=== PATIENT | female | born 1940 ===

== ENCOUNTER → 2018-02-16 | Day surgery (SDC) | payer MEDICARE ==
[2018-02-10 13:33] VITALS: BMI 48.4
[~2018-02-16] MED LIST: Adenosine 90 mg/30mL IV ONE; Bacitracin 500 Units/gm Oint Foilpak UD ONE; Bacitracin 500 Units/gm Oint Foilpak UD TOP ONE; Iohexol 350 MG/100 ML VIAL ONE; Iohexol 350mgl/ml 50 ML ONE; Lidocaine 2% Inj (20ml) ONE; Midazolam 2 MG/2 ML VIAL ONE; Nitroglycerin 50mg in D5W 50 MG/250 ML BOTTLE IV ONE; Verapamil 2 ML ONE
[2018-02-16 09:06] LABS: BASO # 0.02 K/mm3 (0.0-2.0); BASO % 0.4 % (0.0-3.0); EOS # 0.2 (0.0-0.7); EOS % 3.1 % (1.5-5.0); GRAN # 2.84 (1.4-6.5); GRAN % 55.7 % (50.0-68.0); HEMOGLOBIN 12.2 g/dL (12.0-16.0); LYMPH # 1.7 (1.2-3.4); LYMPH % 33.9 % (22.0-35.0); MEAN CORPUSCULAR HEMOGLOBIN 30.3 pg (25.0-35.0); MEAN PLATELET VOLUME 8.5 fl (7.0-11.0); MONO # 0.4 (0.1-0.6); MONO % 6.9 % (1.0-6.0); RBC 4.02 10^6/uL (3.5-6.1); WHITE BLOOD COUNT 5.1 10^3/ul (4.5-11.0)
[2018-02-16 09:09] LABS: BLOOD UREA NITROGEN 19 mg/dL (7-21); CALCIUM 9.2 mg/dL (8.4-10.5); GFR AFRICAN-AMERICAN > 60; GFR NON-AFRICAN AMERICAN > 60; HDL CHOLESTEROL 56 mg/dL (29-60)
[2018-02-16 09:19] LABS: LDL CHOLESTEROL 114 mg/dL (0-129)
[2018-02-16 09:20] LABS: INR 1.04 (0.93-1.08); PARTIAL THROMBOPLASTIN TIME 31.3 Seconds (25.1-36.5)
[2018-02-16 09:44] VITALS: RESP 18
--- NOTE | 2018-02-16 13:06 | CARD ---
APPROVED REPORT EKG Measurement Heart [id number] <Conclusion> Normal sinus rhythm Normal ECG
[2018-02-16 14:27] VITALS: TEMP 97.4
[2018-02-16 14:54] VITALS: O2SAT 99
[2018-02-16 15:21] VITALS: PULSE 62
--- NOTE | 2018-02-16 18:28 | CARDCATH ---
PROCEDURE DATE: 02/16/2018 INDICATIONS: Marah Hull is a 77-year-old female with past medical history significant for hypertension, diabetes, hyperlipidemia, referred for evaluation of abnormal stress test dyspnea on exertion and chest pain. PROCEDURES PERFORMED: Left heart catheterization with selective left and right coronary angiogram, left ventriculogram, fractional flow reserve interrogation of moderate left anterior descending, obtuse marginal right coronary artery lesion, physiologically nonsignificant fractional flow reserve of left anterior descending 0.81, fractional flow reserve of obtuse marginal 0.9, fractional flow reserve of right coronary artery 0.84, 6-Palestinian left radial arterial access, wrist band for hemostasis. TECHNIQUES OF PROCEDURE: After obtaining informed consent, the patient was brought to the cardiac catheterization suite in post-absorptive, non-sedated state. The patient was prepped and draped in the usual sterile fashion, 2% lidocaine was used for infiltration of anesthesia. Using modified Seldinger technique, a 6-Palestinian sheath was introduced into the left radial artery. Subsequently, over an exchanged length wire, a JL-4 catheter was advanced. The radial artery was noted to be tortuous for which a Glidewire was then negotiated through the tortuosity up to the level of the left brachial. Subsequently, catheter was advanced. Guide and the wire was pulled back to straighten out the tortuosity and subsequently JR-4 and JL-4 diagnostic catheter were used to engage the right and left coronary systems and angiograms were obtained in different orthogonal views. CORONARY ANATOMY: Right coronary artery is a large-sized vessel, bifurcates into PDA and PLV branches. Mid RCA has 65% moderate stenosis with haziness noted. FFR of mid RCA was physiologically nonsignificant at 0.84. Left main is a large-sized vessel, bifurcates into LAD and left circumflex coronary artery. LAD mid segment has a 60% stenosis at the bifurcation of the diagonal with ostial 50% stenosis. LAD is wraparound vessel. FFR of the LAD was done which was physiologically nonsignificant at 0.81. Left circumflex artery runs in the AV groove, gives off a medium-sized obtuse marginal branch, which has a proximal 65% stenosis. FFR of the obtuse marginal branch was done which was physiologically nonsignificant at 0.9. IMPRESSION: Moderate three vessel disease, physiologically nonsignificant fractional flow reserve. RECOMMENDATIONS: Continue aggressive medical management and risk factor modification. The patient can be discharged home in 3 hours and follow up with Dr. Potter. Thank you Dr. Potter for letting me participate in the care of your patient. Jeyson Quiroz MD
[2018-02-16 18:38] VITALS: BP 138/64
== END | disposition home or self-care (01) ==
LOC: CATH 08:20
PROVIDERS: ATTEND Internal Medicine Interventional Cardiology
DX: I25.10 Atherosclerotic heart disease of native coronary artery without angina pectoris (principal); E11.9 Type 2 diabetes mellitus without complications; I10 Essential (primary) hypertension; E78.5 Hyperlipidemia, unspecified; R06.09 Other forms of dyspnea
CPT/HCPCS: 36415; 80048; 80061; 85025; 85610; 85730; 86850; 86900; 93005; 93458; 93571; 93572; 99152; 99153; C1769 ×3; C1887 ×2; C1894; J0153; J1644 ×2; J2250; J3010; J7030; Q9967 ×2